=== PATIENT | female | born 1965 | race Caucasian/White ===

== ENCOUNTER 2016-07-21 20:10 | Emergency (ER) | payer OTHER ==
[~2016-07-21] VITALS: Ht 170.2 cm; Wt 97.9 kg
[~2016-07-21 20:10] MED LIST: ADVAIR 250/501 DISK IH; ALBUTEROL17 GM IH; ALPRAZOLAM0.25 M2 PO; BENADRYL25 MG PO; BRETHINE2.5 MG PO; CELEXA40 MG PO; CIPRO500 MG PO; COLACE100 MG PO; DILAUDID2 MG PO; HYDROCHLOROTH12.5 M3 PO; KEFLEX500 MG PO; LANTUS 10100 UNITS/ SC; LORATADINE10 M2 PO; METFORMIN HCL500 MG PO; MONTELUKAST SOD10 MG PO; OXYCODONE HCL5 MG PO; PERCOCET 5/31 TABLET PO; PREDNISONE20 MG PO; PROVENTIL,2.5 MG/0.5 IH; ROBITUSSIN AC,T10 ML PO; SEROQUEL50 MG PO; SYMBICORT60 INHALAT IH; THEOPHYLLINE A300 M1 PO; TRAZODONE HCL150 MG PO; WELLBUTRIN SR150 MG PO; ZOFRAN4 MG PO
[2016-07-21] MEDS ORDERED: PERCOCET 5/31 TABLET PO (21:28)
[2016-07-21] MEDS ORDERED: SKELAXIN800 MG PO (21:28)
[2016-07-21 23:14] VITALS: BP 135/91
== END 2016-07-21 23:15 | disposition home or self-care (01) ==
LOC: EXP 20:10 → EME 20:10 → EXP 23:15
DX: M54.5 Low back pain (principal); M79.604 Pain in right leg; J45.909 Unspecified asthma, uncomplicated; E11.9 Type 2 diabetes mellitus without complications; Z79.4 Long term (current) use of insulin
CPT/HCPCS: 72100; 99281; 99284; J8540

== ENCOUNTER 2017-02-23 17:37 | Emergency (ER) | payer OTHER ==
[~2017-02-23] VITALS: Ht 167.6 cm; Wt 102.2 kg
[~2017-02-23 17:37] MED LIST changes: +SKELAXIN800 MG PO
[2017-02-23 22:10] VITALS: BP 124/89
== END 2017-02-23 22:10 | disposition home or self-care (01) ==
LOC: EME 17:37
DX: M25.562 Pain in left knee (principal); S93.402A Sprain of unspecified ligament of left ankle, initial encounter; W10.9XXA Fall (on) (from) unspecified stairs and steps, initial encounter; Z88.1 Allergy status to other antibiotic agents; Z79.4 Long term (current) use of insulin; K21.9 Gastro-esophageal reflux disease without esophagitis; I10 Essential (primary) hypertension; E11.9 Type 2 diabetes mellitus without complications; F31.9 Bipolar disorder, unspecified
CPT/HCPCS: 71046; 73564; 73610; 73630; 94640; 99281; 99284